=== PATIENT | female | born 1970 | race Two or more races ===

== ENCOUNTER → 2020-06-02 | Outpatient (CLI) | payer SELFPAY ==
[~2020-06-02] MED LIST: NAPR-885 PO; PRIL40CA PO
== END ==
LOC: M LABSMTC 11:09
PROVIDERS: ATTEND Pediatrics
DX: Z20.828 Contact with and (suspected) exposure to other viral communicable diseases (principal)

== ENCOUNTER → 2022-02-05 | Outpatient (CLI) | payer OTHER | LOC: M WHC 06:47 | PROVIDERS: ATTEND Student in an Organized Health Care Education/Training Program | DX: Z12.31 Encounter for screening mammogram for malignant neoplasm of breast (principal) ==

== ENCOUNTER → 2023-06-03 | Outpatient (CLI) | payer OTHER | LOC: M SOG 08:01 | PROVIDERS: ATTEND Physician Assistant | DX: M79.642 Pain in left hand (principal) ==

== ENCOUNTER 2025-02-06 08:50 | Day surgery (SDC) | payer OTHER ==
[~2025-02-06] VITALS: Ht 167.6 cm; Wt 99.2 kg
[~2025-02-06 08:50] MED LIST changes: +FOLI1TAB11 PO; +LIDOCAINE 2% 100 MG/5 ML SDV (FOR ANES.) As Ordered ONE; +MAGN200T PO; +METF500T13 PO; +OMEP1CAP73 PO; +QC F0.52 PO; +VITA100093 PO
[2025-02-06 10:30] VITALS: TEMP 97.9
[2025-02-06 10:46] VITALS: BP 136/78; O2SAT 99
== END 2025-02-06 11:00 | disposition home or self-care (01) ==
LOC: M OPP 08:50
PROVIDERS: ATTEND Surgery
DX: Z12.11 Encounter for screening for malignant neoplasm of colon (principal); G47.30 Sleep apnea, unspecified; Z79.84 Long term (current) use of oral hypoglycemic drugs; Z79.899 Other long term (current) drug therapy